=== PATIENT | female | born 2000 | race Caucasian/White ===

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

== ENCOUNTER 2018-12-13 05:54 | Emergency (ER) | payer OTHER ==
[~2018-12-13] VITALS: Ht 165.1 cm; Wt 85.3 kg
[2018-12-13 06:09] VITALS: BP 134/104
[2018-12-13] MEDS ORDERED: MORPHINE SULFATE 4 MG/ML DISP.SYRIN. IV/SQ PRN (06:15)
[2018-12-13] MEDS ORDERED: MORPHINE SULFATE 4 MG/ML DISP.SYRIN. ONE (06:18)
--- NOTE | 2018-12-13 06:20 | PHYS DOC ---
Past History Past Medical History: No Pertinent History, Other Past Surgical History: Other Additional Past Surgical Histo: WISDOM TEETH Smoking: Non-smoker Alcohol Use: Occasionally Drug Use: Marijuana Adult General Chief Complaint Chief Complaint: ABDOMINAL PAIN HPI HPI Patient is a 18-year-old female presents with right-sided abdominal pain that started several hours prior to arrival and is been getting worse over time. Worse with bumps on the car ride to the emergency department. There is nausea, no vomiting, no diarrhea. No appetite. No fever or chills. No previous abdominal surgeries. Patient has had an IUD in place for the past 3 years and has had intermittent spotting, worse over the past year and a half. No specific menstrual period. No vaginal discharge. No dysuria. No back or flank pain. Pain started after sexual intercourse last night. Reports that the pain is severe in intensity.[] Review of Systems Review of Systems Constitutional: Denies fever or chills [] Eyes: Denies change in visual acuity, redness, or eye pain [] HENT: Denies nasal congestion or sore throat [] Respiratory: Denies cough or shortness of breath [] Cardiovascular: No chest pain or palpitations[] GI: See history of present illness[] : Denies dysuria or hematuria [] Musculoskeletal: Denies back pain or joint pain [] Integument: Denies rash or skin lesions [] Neurologic: Denies headache, focal weakness or sensory changes [] Endocrine: Denies polyuria or polydipsia [] All other systems were reviewed and found to be within normal limits, except as documented in this note. Allergies Allergies Allergies Coded Allergies Type Severity Reaction Last Updated Verified ibuprofen Allergy Severe 07/27/17 Yes pineapple Allergy Severe 07/27/17 Yes Physical Exam Physical Exam Constitutional: Well developed, well nourished, mild discomfort, non-toxic appearance. [] HENT: Normocephalic, atraumatic, bilateral external ears normal, oropharynx moist, no oral exudates, nose normal. [] Eyes: PERRLA, EOMI, conjunctiva normal, no discharge. [] Neck: Normal range of motion, no tenderness, supple, no stridor. [] Cardiovascular:Heart rate regular rhythm, no murmur [] Lungs & Thorax: Bilateral breath sounds clear to auscultation [] Abdomen: Bowel sounds normal, soft, tenderness on the right side, positive Rovsing sign, no masses, no pulsatile masses. Pelvic exam performed with cinema or theatre manager: External genitalia, Bantry's, urethra, and Bartholin's glands are all normal. No rashes or lesions. Vaginal vault shows no significant discharge, no bleeding. Cervix has no cervical motion tenderness, no blood. [] Skin: Warm, dry, no erythema, no rash. [] Back: No tenderness, no CVA tenderness. [] Extremities: No tenderness, no cyanosis, no clubbing, ROM intact, no edema. [] Neurologic: Alert and oriented X 3, normal motor function, normal sensory function, no focal deficits noted. [] Psychologic: Affect normal, judgement normal, mood normal. [] Current Patient Data Vital Signs Vital Signs Date Time Temp Pulse Resp B/P (MAP) Pulse Ox O2 Delivery O2 Flow Rate FiO2 12/13/18 06:09 98.5 106 18 99 Room Air EKG EKG [] Radiology/Procedures Radiology/Procedures PROCEDURE: CT ABD PELV W/ IV CONTRST ONLY CT ABD PELV W/ IV CONTRST ONLY History: Right lower quadrant pain. Negative hCG on 12/13/2018. IUD. Comparison: None. Technique: After administration of intravenous contrast, helical CT of the abdomen and pelvis was performed from the lung bases through the ischial tuberosities. Coronal and sagittal reconstructions were obtained. 75 mL of Omnipaque 300 were used. One or more of the following dose reduction techniques were utilized: Automated exposure control (AEC), Adjustment of mA and/or kV according to patient size, Use of iterative reconstruction technique such as ASiR, CT scan done according to ALARA and image gently/image wisely Abdomen Findings: The visualized lung bases are clear. The liver, gallbladder, pancreas, spleen, and bilateral adrenal glands are normal. Symmetric renal enhancement. There is no focal renal mass. There is no hydronephrosis. The visualized loops of small bowel are normal. The visualized loops of large bowel are normal. There is no evidence of bowel obstruction. Appendix is normal. There is no mesenteric or retroperitoneal adenopathy. The abdominal aorta is normal in caliber. Pelvis Findings: Urinary bladder is normal. There is no pelvic or inguinal adenopathy. Incompletely characterized right adnexal cystic lesion measuring 4.0 cm with mild surrounding fluid. IUD in place. There is no acute bony abnormality. IMPRESSION: Incompletely characterized right adnexal cystic lesion measuring 4.0 cm with mild surrounding fluid. Consider pelvic ultrasound for further evaluation. PROCEDURE: US PELVIS Pelvic ultrasound History: Severe right lower quadrant pain, cyst on CT Comparison: December 13, 2018 CT abdomen pelvis exam Findings: Multiple transabdominal sonographic images of the pelvis are submitted. Uterus measured 9 x 3.5 x 4.8 cm. There is IUD present in the endometrial cavity. Right ovary measured 5.1 x 3 x 4.1 cm. Left ovary measured 3.5 x 3 x 2.1 cm. There is minimal free fluid in the pelvis. There is a hypoechoic lesion of the right ovary about 2.2 x 2.3 x 1.3 cm, internal echoes present. There is normal low resistance vascularity of the ovaries bilaterally. Impression: 1. There is somewhat complex right ovarian cyst about 2.3 cm. There is minimal nonspecific free fluid in the pelvis. 2. There is IUD present in the endometrial cavity.[] Course & Med Decision Making Course & Med Decision Making Pertinent Labs and Imaging studies reviewed. (See chart for details) ED course: Patient arrived, was placed in bed, and tolerated exam well. She was given a dose of pain medicine and had subsequent nausea without vomiting. She was given antiemetics for this. Both the pain and nausea were controlled with single doses of medicine. She was transported to and from CT with any complications. After the return of the CT findings, ultrasound was ordered and she was transported to and from ultrasound without any complications. After the return of laboratory and imaging findings, these were discussed with the patient who voiced understanding. All questions were answered. She was discharged in improved condition. Medical decision making: There is no evidence of appendicitis, cholecystitis, pancreatitis, ectopic , nor tubo-ovarian abscess. No evidence of ovarian torsion. This appears to be an ovarian cyst that "popped" causing pain from the irritation of blood. Incidental finding is noted of bacterial vaginosis.[] Dragon Disclaimer Dragon Disclaimer This electronic medical record was generated, in whole or in part, using a voice recognition dictation system. Departure Departure: Impression: Primary Impression: Ovarian cyst Additional Impression: Bacterial vaginosis Disposition: HOME, SELF-CARE Condition: IMPROVED Referrals: PCP,MARGI (PCP) Patient Instructions: Bacterial Vaginosis, Ovarian Cyst Additional Instructions: Follow-up with your regular doctor in 2 days. If you do not have regular doctor list of local clinics will be provided for you. Return to the ER if worsening discomfort or any other concerns. Scripts Metronidazole (METRONIDAZOLE) 500 Mg Tablet 1 TAB PO BID for BV, #14 TAB Prov: PATSY VELOZ DO 12/13/18 Hydrocodone Bit/Acetaminophen (NORCO 5-325 TABLET) 1 Each Tablet 1 TAB PO Q4-6HRS for severe pain, #20 TAB Prov: PATSY VELOZ DO 12/13/18 Problem Qualifiers Primary Impression: Ovarian cyst Laterality: right Qualified Codes: N83.201 - Unspecified ovarian cyst, right side PATSY VELOZ DO Dec 13, 2018 06:20
[2018-12-13 06:30] LABS: BASO # 0.1 x10^3/uL (0.0-0.2); BASO % 1 % (0-3); EOS # 0.3 x10^3/uL (0.0-0.7); EOS % 3 % (0-3); HEMATOCRIT 41.9 % (36.0-47.0); HEMOGLOBIN 14.1 g/dL (12.0-15.5); LYMPH % 20 % (24-48); MEAN CORPUSCULAR HEMOGLOBIN 32 pg (25-35); MEAN CORPUSCULAR HGB CONC 34 g/dL (31-37); MEAN CORPUSCULAR VOLUME 94 fL (79-100); MONO # 0.8 x10^3/uL (0.0-1.1); MONO % 8 % (0-9); NEUT # 6.9 x10^3uL (1.8-7.7); NEUT % 68 % (31-73); PLATELET COUNT 223 x10^3/uL (140-400); RED BLOOD COUNT 4.45 x10^6/uL (3.50-5.40); RED CELL DISTRIBUTION WIDTH 12.7 % (11.5-14.5); WHITE BLOOD COUNT 10.1 x10^3/uL (4.0-11.0)
[2018-12-13] MEDS ORDERED: IOHEXOL 300 MG/ML 75 ML VIAL. IV ONE (06:30)
[2018-12-13] MEDS ORDERED: CONTRAST GIVEN MC PRN (06:30)
[2018-12-13] MEDS ORDERED: IV NORMAL SALINE 1,000ML 1,000 ML IV SCH (06:30)
[2018-12-13 06:41] LABS: ALBUMIN 3.9 g/dL (3.4-5.0); ALBUMIN/GLOBULIN RATIO 1.1 (1.0-1.7); CALCIUM 8.8 mg/dL (8.5-10.1); CREATININE 0.9 mg/dL (0.6-1.0); GFR 79.8; POTASSIUM 4.6 mmol/L (3.5-5.1); TOTAL BILIRUBIN 0.3 mg/dL (0.2-1.0); TOTAL PROTEIN 7.4 g/dL (6.4-8.2)
[2018-12-13] MEDS ORDERED: METOCLOPRAMIDE HCL 10 MG/2 ML VIAL. IV ONE (07:00)
--- NOTE | 2018-12-13 07:05 | RAD ---
CT ABD PELV W/ IV CONTRST ONLY History: Right lower quadrant pain. Negative hCG on 12/13/2018. IUD. Comparison: None. Technique: After administration of intravenous contrast, helical CT of the abdomen and pelvis was performed from the lung bases through the ischial tuberosities. Coronal and sagittal reconstructions were obtained. 75 mL of Omnipaque 300 were used. One or more of the following dose reduction techniques were utilized: Automated exposure control (AEC), Adjustment of mA and/or kV according to patient size, Use of iterative reconstruction technique such as ASiR, CT scan done according to ALARA and image gently/image wisely Abdomen Findings: The visualized lung bases are clear. The liver, gallbladder, pancreas, spleen, and bilateral adrenal glands are normal. Symmetric renal enhancement. There is no focal renal mass. There is no hydronephrosis. The visualized loops of small bowel are normal. The visualized loops of large bowel are normal. There is no evidence of bowel obstruction. Appendix is normal. There is no mesenteric or retroperitoneal adenopathy. The abdominal aorta is normal in caliber. Pelvis Findings: Urinary bladder is normal. There is no pelvic or inguinal adenopathy. Incompletely characterized right adnexal cystic lesion measuring 4.0 cm with mild surrounding fluid. IUD in place. There is no acute bony abnormality. IMPRESSION: Incompletely characterized right adnexal cystic lesion measuring 4.0 cm with mild surrounding fluid. Consider pelvic ultrasound for further evaluation. Electronically signed by: Serg Lemus MD (12/13/2018 7:02 AM) [id number]
--- NOTE | 2018-12-13 08:31 | RAD ---
Pelvic ultrasound History: Severe right lower quadrant pain, cyst on CT Comparison: December 13, 2018 CT abdomen pelvis exam Findings: Multiple transabdominal sonographic images of the pelvis are submitted. Uterus measured 9 x 3.5 x 4.8 cm. There is IUD present in the endometrial cavity. Right ovary measured 5.1 x 3 x 4.1 cm. Left ovary measured 3.5 x 3 x 2.1 cm. There is minimal free fluid in the pelvis. There is a hypoechoic lesion of the right ovary about 2.2 x 2.3 x 1.3 cm, internal echoes present. There is normal low resistance vascularity of the ovaries bilaterally. Impression: 1. There is somewhat complex right ovarian cyst about 2.3 cm. There is minimal nonspecific free fluid in the pelvis. 2. There is IUD present in the endometrial cavity. Electronically signed by: Serg Dang MD (12/13/2018 8:28 AM) [facility]
[2018-12-13 09:08] LABS: AMORPHOUS SEDIMENT,UR PRESENT /HPF; BACTERIA,URINE FEW /HPF (0-FEW); BILIRUBIN,URINE NEG (NEG); CLARITY,URINE HAZY; COLOR,URINE YELLOW; GLUCOSE,URINE NEG (NEG); NITRITE,URINE NEG (NEG); UROBILINOGEN,URINE 0.2 mg/dL (0.2 mg/dL); WBC,URINE OCC /HPF (0-4)
[2018-12-13 09:09] LABS: SQUAMOUS EPITHELIAL CELL,UR FEW /LPF
[2018-12-13] MEDS ORDERED: HYDR-3165 PO (09:28)
[2018-12-13] MEDS ORDERED: METR-34 PO (09:28)
== END 2018-12-13 09:35 | disposition home or self-care (01) ==
LOC: ER 05:54
DX: N83.201 Unspecified ovarian cyst, right side (principal); N76.0 Acute vaginitis; B96.89 Other specified bacterial agents as the cause of diseases classified elsewhere; Z91.018 Allergy to other foods
CPT/HCPCS: 36415; 74177; 76856; 80053; 81001; 81025; 83690; 85025; 87491; 87591; 96374; 96375; 99285; J2270; J2765; Q0111; Q9967; J7030

== ENCOUNTER 2018-12-18 18:18 | Emergency (ER) | payer OTHER ==
[~2018-12-18] VITALS: Ht 165.1 cm; Wt 81.6 kg
[~2018-12-18 18:18] MED LIST: HYDR-3165 PO; METR-34 PO
[2018-12-18] MEDS ORDERED: IV NORMAL SALINE 1,000ML 1,000 ML IV ONE (18:45)
--- NOTE | 2018-12-18 18:59 | PHYS DOC ---
Past History Past Medical History: No Pertinent History, Other Past Surgical History: Other Additional Past Surgical Histo: WISDOM TEETH Smoking: Non-smoker Alcohol Use: Occasionally Drug Use: Marijuana Adult General Chief Complaint Chief Complaint: VAGINAL PROBLEM HPI HPI 18-year-old female returns to the emergency room with vaginal bleeding and abdominal pain. This time her abdominal pain is on the left side instead of the right. She was seen in this a few days ago and diagnosed with an ovarian cyst. The patient has been taking pain medication that she was prescribed at her last visit. She has not taken any today. The pain is on the left-sided she describes it as an intense cramping sensation moderate to severe in intensity. She is also had some vaginal bleeding. When she wipes herself bright red blood. Patient still has an IUD that she's had for about 3 years. She does not have a regular menses, but has had some breakthrough bleeding the last year. She denies fever but feels like she might have chills. She denies dysuria. Review of Systems Review of Systems Constitutional: Denies fever or chills [] Eyes: Denies change in visual acuity, redness, or eye pain [] HENT: Denies nasal congestion or sore throat [] Respiratory: Denies cough or shortness of breath [] Cardiovascular: No additional information not addressed in HPI [] GI: Lower quadrant abdominal pain. Denies nausea, vomiting, bloody stools or diarrhea [] : Denies dysuria or hematuria [] Musculoskeletal: Denies back pain or joint pain [] Integument: Denies rash or skin lesions [] Neurologic: Denies headache, focal weakness or sensory changes [] Endocrine: Denies polyuria or polydipsia [] All other systems were reviewed and found to be within normal limits, except as documented in this note. Current Medications Current Medications Current Medications Medications (Trade) Dose Ordered Sig/Nino Start Time Stop Time Status Last Admin Dose Admin Sodium Chloride 1,000 ml @ 1,000 mls/hr 1X ONCE 12/18/18 18:45 12/18/18 19:44 Allergies Allergies Allergies Coded Allergies Type Severity Reaction Last Updated Verified ibuprofen Allergy Severe 07/27/17 Yes pineapple Allergy Severe 07/27/17 Yes Physical Exam Physical Exam Constitutional: Well developed, obese, well nourished, no acute distress, non- toxic appearance. [] HENT: Normocephalic, atraumatic, bilateral external ears normal, oropharynx moist, no oral exudates, nose normal. [] Eyes: PERRLA, EOMI, conjunctiva normal, no discharge. [] Neck: Normal range of motion, no tenderness, supple, no stridor. [] Cardiovascular:Heart rate regular rhythm, no murmur [] Lungs & Thorax: Bilateral breath sounds clear to auscultation [] Abdomen: Bowel sounds normal, soft, LLQ tenderness, no masses, no pulsatile masses. [] Skin: Warm, dry, no erythema, no rash. [] Back: No tenderness, no CVA tenderness. [] Extremities: No tenderness, no cyanosis, no clubbing, ROM intact, no edema. [] Neurologic: Alert and oriented X 3, normal motor function, normal sensory function, no focal deficits noted. [] Psychologic: Affect normal, judgement normal, mood normal. [] Current Patient Data Vital Signs Vital Signs Date Time Temp Pulse Resp B/P (MAP) Pulse Ox O2 Delivery O2 Flow Rate FiO2 12/18/18 18:37 98.2 97 16 97 Room Air EKG EKG [] Radiology/Procedures Radiology/Procedures [] Impressions: Examination: CT ABD PELV W/ IV CONTRST ONLY History: Left lower quadrant pain Comparison/Correlation: 12/13/2018 CT abdomen and pelvis with contrast Findings: Axial images of the abdomen and pelvis were obtained following IV contrast. Sagittal and coronal reformatted images were provided. Linear atelectasis or scarring involves the anterior right base. Mosaic attenuation is present involving the lung bases. Liver, spleen, pancreas, adrenal glands, and kidneys are unremarkable. Appendix is normal. Moderate quantity of stool in the colon noted. No obstruction or extraluminal gas. Intrauterine device is present. Left adnexal cyst measuring up to 2.5 cm diameter with minimal fluid adjacent to it in the dependent aspect noted. Trace pelvic free fluid. Right adnexal 4.4 cm diameter septated cyst or possibly 2 adjacent smaller cysts is present. No extraluminal gas or bowel obstruction. No ascites or pelvic free fluid. Bony structures are unremarkable. Impression: Bilateral adnexal cysts. Trace pelvic free fluid. These may be physiologic. Decreased pelvic free fluid since the prior CT exam. Correlate clinically in determining follow-up to assess for resolution. PQRS Compliance Statement: One or more of the following individualized dose reduction techniques were utilized for this examination: 1. Automated exposure control 2. Adjustment of the mA and/or kV according to patient size 3. Use of iterative reconstruction technique Electronically signed by: Yuri Ivy MD (12/18/2018 9:42 PM) [facility] DICTATED AND SIGNED BY: YURI IVY MD DATE: 12/18/18 [id number] CC: SAGAR SAGASTUME DO; PCP,NO ~ Examination: US PELVIS W/TV History: Pelvic pain Comparison/Correlation: 12/18/2018 CT abdomen and pelvis with contrast, 12/13/2018 pelvic ultrasound exam Findings: Transabdominal and transvaginal pelvic ultrasound exam was performed. Transvaginal technique was utilized to better assess the adnexal structures. Uterus measures 9.6 cm x 5.3 cm x 4 cm. Myometrium is unremarkable. Endometrial thickness is 0.5 centimeter. No intrauterine gestation. Nabothian cysts involving the uterine cervix. Right ovary measures 5.2 cm x 4.3 cm x 3.4 cm. Left ovary measures 3.1 cm x 2.1 cm x 1.6 centimeters. Right ovary complex cyst measuring 4.5 cm x 3.6 cm x 2.7 cm present. There is no flow within it on color Doppler imaging. Flow bilaterally involving the ovaries is identified. Left ovary measures 2.1 cm x 3.1 cm x 1.6 cm. Small follicles are present. Small amount of pelvic free fluid is present. Impression: Right adnexal complex cystic structure is larger in size on the current exam as compared previous ultrasound exam. Correlate with serial beta hCG and follow-up ultrasound if ectopic gestation is a concern. Endometrium account for this finding. Correlate for possibility of underlying endometriosis. Minimal pelvic free fluid. No new suspicious pelvic region. Normal ovarian flow with no evidence of torsion. Electronically signed by: Yuri Ivy MD (12/18/2018 11:14 PM) [facility] DICTATED AND SIGNED BY: YRUI IVY MD DATE: 12/18/18 [id number] CC: SAGAR SAGASTUME DO; PCP,NO ~ Course & Med Decision Making Course & Med Decision Making Pertinent Labs and Imaging studies reviewed. (See chart for details) The patient's labs are unremarkable. Her CT scan and ultrasound continued to show a complex cyst of the left, but there is now an additional 2.5 cm cyst on the right. The patient is very uncomfortable. She has required multiple doses of pain medication. I checked the narcotics tracking database and she has one prescription in the last 2 years that was given by my colleague at her visit 6 days ago. The patient does have a UTI. She was given 1 g of Rocephin. I discussed the patient with Dr. Norman and he has accepted patient for transfer and admission to [facility]. OB is available at this facility. The patient will go by POV. [] Dragon Disclaimer Dragon Disclaimer This electronic medical record was generated, in whole or in part, using a voice recognition dictation system. Departure Departure: Impression: Primary Impression: Complex cyst of left ovary Additional Impression: Ovarian cyst Disposition: [facility] Admitting Physician: Jaqueline Norman Condition: STABLE Referrals: PCP,NO (PCP) Problem Qualifiers Additional Impression: Ovarian cyst Laterality: bilateral Qualified Codes: N83.201 - Unspecified ovarian cyst, right side; N83.202 - Unspecified ovarian cyst, left side SAGAR SAGASTUME DO Dec 18, 2018 18:59
[2018-12-18] MEDS ORDERED: ONDANSETRON PF 4 MG/2 ML VIAL. IV ONE (19:00)
[2018-12-18] MEDS ORDERED: MORPHINE SULFATE 4 MG/ML DISP.SYRIN. IV ONE (19:00)
[2018-12-18 19:09] LABS: BASO % 1 % (0-3); EOS # 0.1 x10^3/uL (0.0-0.7); EOS % 1 % (0-3); HEMATOCRIT 41.8 % (36.0-47.0); HEMOGLOBIN 14.2 g/dL (12.0-15.5); LYMPH # 2.2 x10^3/uL (1.0-4.8); LYMPH % 36 % (24-48); MEAN CORPUSCULAR HEMOGLOBIN 32 pg (25-35); MEAN CORPUSCULAR HGB CONC 34 g/dL (31-37); MEAN CORPUSCULAR VOLUME 93 fL (79-100); MONO # 0.5 x10^3/uL (0.0-1.1); MONO % 8 % (0-9); NEUT # 3.3 x10^3uL (1.8-7.7); NEUT % 54 % (31-73); PLATELET COUNT 229 x10^3/uL (140-400); RED BLOOD COUNT 4.49 x10^6/uL (3.50-5.40); RED CELL DISTRIBUTION WIDTH 12.8 % (11.5-14.5); WHITE BLOOD COUNT 6.1 x10^3/uL (4.0-11.0)
[2018-12-18 19:27] LABS: ALBUMIN 4.1 g/dL (3.4-5.0); ALBUMIN/GLOBULIN RATIO 1.1 (1.0-1.7); CALCIUM 8.9 mg/dL (8.5-10.1); CREATININE 0.8 mg/dL (0.6-1.0); GFR 91.4; TOTAL BILIRUBIN 0.4 mg/dL (0.2-1.0); TOTAL PROTEIN 7.7 g/dL (6.4-8.2)
[2018-12-18 19:58] LABS: BILIRUBIN,URINE NEG (NEG); CLARITY,URINE HAZY; COLOR,URINE YELLOW; GLUCOSE,URINE NEG (NEG)
[2018-12-18 19:59] LABS: BACTERIA,URINE MOD /HPF (0-FEW); NITRITE,URINE NEG (NEG); SQUAMOUS EPITHELIAL CELL,UR OCC /LPF; UROBILINOGEN,URINE 0.2 mg/dL (0.2 mg/dL)
[2018-12-18 20:00] LABS: HYALINE CASTS, URINE OCC /HPF
[2018-12-18] MEDS ORDERED: HYDROmorphone PF 1 MG/ML DISP.SYRIN IV ONE ×3 (20:00→23:45)
[2018-12-18] MEDS ORDERED: cefTRIAXone SODIUM 1 GM VIAL ONE ×2 (20:25→22:49)
[2018-12-18] MEDS ORDERED: IV NORMAL SALINE 50ML 50 ML ONE ×2 (20:25→22:49)
[2018-12-18] MEDS ORDERED: IOHEXOL 300 MG/ML 75 ML VIAL. IV ONE (20:30)
--- NOTE | 2018-12-18 21:45 | RAD ---
Examination: CT ABD PELV W/ IV CONTRST ONLY History: Left lower quadrant pain Comparison/Correlation: 12/13/2018 CT abdomen and pelvis with contrast Findings: Axial images of the abdomen and pelvis were obtained following IV contrast. Sagittal and coronal reformatted images were provided. Linear atelectasis or scarring involves the anterior right base. Mosaic attenuation is present involving the lung bases. Liver, spleen, pancreas, adrenal glands, and kidneys are unremarkable. Appendix is normal. Moderate quantity of stool in the colon noted. No obstruction or extraluminal gas. Intrauterine device is present. Left adnexal cyst measuring up to 2.5 cm diameter with minimal fluid adjacent to it in the dependent aspect noted. Trace pelvic free fluid. Right adnexal 4.4 cm diameter septated cyst or possibly 2 adjacent smaller cysts is present. No extraluminal gas or bowel obstruction. No ascites or pelvic free fluid. Bony structures are unremarkable. Impression: Bilateral adnexal cysts. Trace pelvic free fluid. These may be physiologic. Decreased pelvic free fluid since the prior CT exam. Correlate clinically in determining follow-up to assess for resolution. PQRS Compliance Statement: One or more of the following individualized dose reduction techniques were utilized for this examination: 1. Automated exposure control 2. Adjustment of the mA and/or kV according to patient size 3. Use of iterative reconstruction technique Electronically signed by: Yuri Jeong MD (12/18/2018 9:42 PM) [facility]
--- NOTE | 2018-12-18 23:17 | RAD ---
Examination: US PELVIS W/TV History: Pelvic pain Comparison/Correlation: 12/18/2018 CT abdomen and pelvis with contrast, 12/13/2018 pelvic ultrasound exam Findings: Transabdominal and transvaginal pelvic ultrasound exam was performed. Transvaginal technique was utilized to better assess the adnexal structures. Uterus measures 9.6 cm x 5.3 cm x 4 cm. Myometrium is unremarkable. Endometrial thickness is 0.5 centimeter. No intrauterine gestation. Nabothian cysts involving the uterine cervix. Right ovary measures 5.2 cm x 4.3 cm x 3.4 cm. Left ovary measures 3.1 cm x 2.1 cm x 1.6 centimeters. Right ovary complex cyst measuring 4.5 cm x 3.6 cm x 2.7 cm present. There is no flow within it on color Doppler imaging. Flow bilaterally involving the ovaries is identified. Left ovary measures 2.1 cm x 3.1 cm x 1.6 cm. Small follicles are present. Small amount of pelvic free fluid is present. Impression: Right adnexal complex cystic structure is larger in size on the current exam as compared previous ultrasound exam. Correlate with serial beta hCG and follow-up ultrasound if ectopic gestation is a concern. Endometrium account for this finding. Correlate for possibility of underlying endometriosis. Minimal pelvic free fluid. No new suspicious pelvic region. Normal ovarian flow with no evidence of torsion. Electronically signed by: Yuri Jeong MD (12/18/2018 11:14 PM) [facility]
[2018-12-19] MEDS ORDERED: ONDANSETRON PF 4 MG/2 ML VIAL. IV ONE (00:15)
[2018-12-19 00:25] VITALS: BP 141/68
[2018-12-19] MEDS ORDERED: PROCHLORPERAZINE 10 MG/2 ML VIAL. IM ONE (00:45)
== END 2018-12-19 00:30 | disposition short-term general hospital (02) ==
LOC: ER 18:18
DX: N83.292 Other ovarian cyst, left side (principal); N83.201 Unspecified ovarian cyst, right side; Z88.6 Allergy status to analgesic agent; Z91.018 Allergy to other foods
CPT/HCPCS: 36415; 74177; 76830; 76856; 80053; 81001; 81025; 84702; 85025; 87086; 96365; 96375; 96376; 99285; J0696; J1170; J2270; J2405; Q9967; J7030

== ENCOUNTER 2019-01-30 20:48 | Emergency (ER) | payer SELFPAY ==
[~2019-01-30] VITALS: Ht 165.1 cm; Wt 78.1 kg
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
[2019-01-30] MEDS ORDERED: ONDANSETRON PF 4 MG/2 ML VIAL. ONE (21:06)
[2019-01-30] MEDS ORDERED: IV RINGERS SOLUTION,LACTATED 1,000 ML IV SCH (21:08)
[2019-01-30 21:19] LABS: BARBITURATES NEG (NEG); BENZODIAZEPINES NEG (NEG); CANNABINOIDS POS (NEG); COCAINE NEG (NEG); METHADONE NEG (NEG); OPIATES NEG (NEG); PHENCYCLIDINE NEG (NEG)
[2019-01-30 21:22] LABS: AMPHETAMINE/METHAMPHETAMINE NEG (NEG)
[2019-01-30 21:23] LABS: BILIRUBIN,URINE NEG (NEG); CLARITY,URINE CLEAR; COLOR,URINE YELLOW; GLUCOSE,URINE NEG (NEG)
[2019-01-30 21:24] LABS: BACTERIA,URINE 0 /HPF (0-FEW); NITRITE,URINE NEG (NEG); RBC,URINE RARE /HPF (0-2); SQUAMOUS EPITHELIAL CELL,UR FEW /LPF; UROBILINOGEN,URINE 0.2 mg/dL (0.2 mg/dL); WBC,URINE RARE /HPF (0-4)
[2019-01-30] MEDS ORDERED: MORPHINE SULFATE 10 MG/ML SYRINGE. SQ ONE (21:30)
[2019-01-30] MEDS ORDERED: FAMOTIDINE 20 MG/2 ML VIAL IVP ONE (21:30)
[2019-01-30] MEDS ORDERED: ONDANSETRON PF 4 MG/2 ML VIAL. IVP ONE (21:30)
[2019-01-30 21:33] LABS: BASO # 0.1 x10^3/uL (0.0-0.2); BASO % 1 % (0-3); EOS # 0.3 x10^3/uL (0.0-0.7); EOS % 3 % (0-3); HEMOGLOBIN 13.8 g/dL (12.0-15.5); LYMPH # 3.2 x10^3/uL (1.0-4.8); LYMPH % 30 % (24-48); MEAN CORPUSCULAR HEMOGLOBIN 31 pg (25-35); MEAN CORPUSCULAR HGB CONC 34 g/dL (31-37); MEAN CORPUSCULAR VOLUME 92 fL (79-100); MONO # 0.7 x10^3/uL (0.0-1.1); MONO % 6 % (0-9); NEUT # 6.6 x10^3uL (1.8-7.7); NEUT % 61 % (31-73); PLATELET COUNT 286 x10^3/uL (140-400); RED BLOOD COUNT 4.45 x10^6/uL (3.50-5.40); RED CELL DISTRIBUTION WIDTH 12.7 % (11.5-14.5); WHITE BLOOD COUNT 10.8 x10^3/uL (4.0-11.0)
[2019-01-30] MEDS ORDERED: birth control (21:37)
[2019-01-30 21:54] LABS: ALBUMIN 3.3 g/dL (3.4-5.0); CALCIUM 8.8 mg/dL (8.5-10.1); CREATININE 0.9 mg/dL (0.6-1.0); DIRECT BILIRUBIN 0.1 mg/dL (0.0-0.2); GFR 79.8; TOTAL BILIRUBIN 0.2 mg/dL (0.2-1.0); TOTAL PROTEIN 6.8 g/dL (6.4-8.2)
[2019-01-30] MEDS ORDERED: KETOROLAC 30 MG/ML VIAL. IVP ONE (22:00)
[2019-01-30] MEDS ORDERED: HYDROmorphone PF 2 MG/ML VIAL IM ONE (22:45)
[2019-01-30] MEDS ORDERED: IV RINGERS SOLUTION,LACTATED 1,000 ML IV ONE (23:00)
--- NOTE | 2019-01-30 23:46 | RAD ---
Acute Abdominal Series: Technique: PA view of the chest and supine and upright views of the abdomen were obtained. History: Pain. Comparison: None. Findings: The lungs and pleural margins are clear. There is air and stool scattered throughout the colon. There is a paucity small bowel gas. There is no free air. There is complete obscuration of the renal shadows by overlying bowel gas. Impression: Nonobstructive bowel gas pattern suggesting mild constipation. Electronically signed by: Aram Shook III, MD (01/30/2019 11:43 PM) [facility]
[2019-01-30] MEDS ORDERED: HYDROmorphone PF 1 MG/ML DISP.SYRIN ONE (23:58)
[2019-01-31] MEDS ORDERED: HYDROmorphone PF 2 MG/ML VIAL IV ONE (00:15)
[2019-01-31] MEDS ORDERED: diphenhydrAMINE 50 MG/ML VIAL IVP ONE (00:15)
[2019-01-31] MEDS ORDERED: PROCHLORPERAZINE 10 MG/2 ML VIAL. IV ONE (00:15)
[2019-01-31] MEDS ORDERED: ONDANSETRON PF 4 MG/2 ML VIAL. IVP ONE (00:15)
--- NOTE | 2019-01-31 00:51 | RAD ---
Ultrasound pelvis complete and transvaginal ultrasound pelvis HISTORY: One day of pain right worse than left Sonographic examination of the pelvis was performed by transabdominal and endovaginal technique. Multiple static images were obtained. Ultrasound pelvis complete: The uterus appears normal. The right ovary appears normal with normal blood flow measures 3.2 x 3.9 x 2.0 cm. Left ovary is not seen. Transvaginal some pelvis: The endometrium of the uterus appears normal and measures 4 mm in thickness. The left ovary measures 4.4 x 3.6 x 2 point centimeter cm. There is a complex lesion in the left ovary that measures 2.6 x 1.5 x 1.8 cm. There is a small amount of free fluid. There is nabothian cysts in the cervix. IMPRESSION: Collapsing hemorrhagic cyst in the left ovary. This interpretation assumes the patient is not . Electronically signed by: Aram Shook III, MD (01/31/2019 12:48 AM) [facility]
[2019-01-31] MEDS ORDERED: OXYC1TAB15 PO (01:27)
[2019-01-31] MEDS ORDERED: ONDA8TAB9 PO (01:27)
[2019-01-31 02:30] VITALS: BP 118/53
== END 2019-01-31 02:40 | disposition home or self-care (01) ==
LOC: ER 20:48
DX: R10.31 Right lower quadrant pain (principal); R11.2 Nausea with vomiting, unspecified; F12.10 Cannabis abuse, uncomplicated; Z91.018 Allergy to other foods; Z88.6 Allergy status to analgesic agent
CPT/HCPCS: 36415; 74022; 76830; 76856; 80048; 80076; 80307; 81001; 81025; 82150; 83690; 85025; 96361; 96372; 96374; 96375; 96376; 99285; J0780; J1170; J1200; J1885; J2270; J2405; J3490; J7120

== ENCOUNTER 2021-02-14 07:08 | Emergency (ER) | payer OTHER ==
[~2021-02-14] VITALS: Ht 165.1 cm; Wt 73.0 kg
[~2021-02-14 07:08] MED LIST changes: +ONDA8TAB9 PO; +OXYC1TAB15 PO; +birth control
--- NOTE | 2021-02-14 07:23 | PHYS DOC ---
Past History Past Medical History: No Pertinent History, Ovarian Cyst, Other Past Surgical History: Other Additional Past Surgical Histo: WISDOM TEETH Smoking: Non-smoker Alcohol Use: Occasionally Drug Use: Marijuana Adult General Chief Complaint Chief Complaint: VAGINAL BLEEDING [facility] HPI Patient is a 20-year-old female presenting for vaginal bleeding. Reports she is 8 months from a . States at that time an IUD was placed. Reports she had no issues up until 4 months ago when she reports on and off vaginal bleeding. Patient attempted to see her SKIN CARE TECHNICIAN a few weeks ago but owed money and subsequently was turned down from being able to visit them. States today without any known inciting event, trauma, ingestion, known mechanism of injury or other exacerbating factor, she started experiencing heavier vaginal bleeding than usual and went x3 tampons in 1 hour prompting her to come in for evaluation. Bleeding has been constant and painless. Denies any change in skin color, lightheadedness, dizziness, chest pain, shortness of breath or other concerning findings Review of Systems Review of Systems Fourteen body systems of review of systems have been reviewed. See HPI for pertinent positives and negative responses, other dumont all other systems are negative, non-pertinent or non-contributory Allergies Allergies Allergies Coded Allergies Type Severity Reaction Last Updated Verified pineapple Allergy Severe 01/30/19 Yes ibuprofen Adverse Reaction Intermediate Rash 01/30/19 Yes Physical Exam Physical Exam Constitutional: Well developed, well nourished, no acute distress, non-toxic appearance. HENT: Normocephalic, atraumatic, bilateral external ears normal, oropharynx moist, no oral exudates, nose normal. Eyes: PERRLA, EOMI, conjunctiva normal, no discharge. Neck: Normal range of motion, no tenderness, supple, no stridor. Cardiovascular: Heart rate regular, sinus rhythm, no murmurs rubs or gallops Lungs & Thorax: Bilateral breath sounds clear to auscultation Abdomen: Bowel sounds normal, soft, no tenderness, no masses, no pulsatile masses. Nonsurgical abdomen, no peritoneal signs Skin: Warm, dry, no erythema, no rash. Back: No tenderness, no CVA tenderness. Extremities: No tenderness, no cyanosis, no clubbing, ROM intact, no edema. Neurologic: Alert and oriented X 3, grossly normal motor & sensory function, no focal deficits noted. Psychologic: Anxious affect and mood Current Patient Data Vital Signs Vital Signs Date Time Temp Pulse Resp B/P (MAP) Pulse Ox O2 Delivery O2 Flow Rate FiO2 02/14/21 07:26 98.0 90 18 160/67 (98) 98 Room Air Vital Signs Date Time Temp Pulse Resp B/P (MAP) Pulse Ox O2 Delivery O2 Flow Rate FiO2 02/14/21 07:26 98.0 90 18 160/67 (98) 98 Room Air Lab Results Laboratory Tests Test 02/14/21 07:35 02/14/21 08:29 White Blood Count 10.4 x10^3/uL Red Blood Count 4.04 x10^6/uL Hemoglobin 13.0 g/dL Hematocrit 38.9 % Mean Corpuscular Volume 96 fL Mean Corpuscular Hemoglobin 32 pg Mean Corpuscular Hemoglobin Concent 33 g/dL Red Cell Distribution Width 13.2 % Platelet Count 202 x10^3/uL Neutrophils (%) (Auto) 69 % Lymphocytes (%) (Auto) 22 % Monocytes (%) (Auto) 7 % Eosinophils (%) (Auto) 3 % Basophils (%) (Auto) 1 % Neutrophils # (Auto) 7.1 x10^3uL Lymphocytes # (Auto) 2.2 x10^3/uL Monocytes # (Auto) 0.7 x10^3/uL Eosinophils # (Auto) 0.3 x10^3/uL Basophils # (Auto) 0.1 x10^3/uL Sodium Level 138 mmol/L Potassium Level 4.5 mmol/L Chloride Level 106 mmol/L Carbon Dioxide Level 24 mmol/L Anion Gap 8 Blood Urea Nitrogen 10 mg/dL Creatinine 0.7 mg/dL Estimated GFR (Cockcroft-Gault) 104.6 Glucose Level 93 mg/dL Calcium Level 8.5 mg/dL Bedside Urine HCG, Qualitative hcg negative Current Medications Medications (Trade) Dose Ordered Sig/Nino Route PRN Reason Start Time Stop Time Status Last Admin Dose Admin Ondansetron HCl (Zofran) 4 mg 1X ONCE IVP 02/14/21 08:45 02/14/21 08:46 EKG EKG [] Radiology/Procedures Radiology/Procedures US PELVIS W/TV History: Vaginal bleeding, IUD 3 months. Comparison: Pelvic ultrasound 01/30/2019 Technique: Sonographic examination of the pelvis was performed with transabdominal and transvaginal technique. Findings: Uterus- Uterine parenchyma: Homogeneous without fibroids. Uterine measurements: 9.6 x 5.9 x 4.9 cm Cervix: IUD string seen within the cervical canal. Endometrium- Endometrial Stripe: An intrauterine device is present in the mid endometrium, approximately 1.5 cm from the fundus. The intrauterine device wings are not well visualized. Thickness: 14 mm. Adnexa- Right Ovary: Identified and appears normal. Size: 5.3 x 3.2 x 3.6 cm Doppler: Normal. Left Ovary: Identified and appears normal. Size: 3.9 x 2.1 x centimeters Doppler: Normal. Other: No abnormal adnexal masses. No abnormal free fluid in the pelvis. Impression: 1. Intrauterine device suboptimally positioned in the mid endometrium, approximately 1.5 cm from the fundus, recommend removal. IUD wings not clearly identified, cannot extension into myometrium. Electronically signed by: Boni Martin MD (02/14/2021 8:33 AM) [id number] Heart Score C/O Chest Pain: No Risk Factors: Risk Factors: DM, Current or recent (<one month) smoker, HTN, HLP, family history of CAD, obesity. Risk Scores: Risk Factors: DM, Current or recent (<one month) smoker, HTN, HLP, family history of CAD, obesity. Course & Med Decision Making Course & Med Decision Making ABCs unremarkable Vitals, physical exam and comprehensive ER work-up nonconcerning for any emergent or surgical issues. I disclosed entirety of all ER findings with patient with specific mention to suboptimal replaced IUD with recommendations for removal. Patient has outpatient SKIN CARE TECHNICIAN whom she is established with, I advised her to pay the $45 co- pay to seek the advice of this professional to determine if need for reposi tioning and/or complete removal is recommended. Joint decision made to discharge home with close SKIN CARE TECHNICIAN follow-up by the end of the week. Strict return precautions discussed and understood by patient who remained hemodynamically stable, asymptomatic and ambulatory throughout entirety of ER Dragon Disclaimer Dragon Disclaimer This electronic medical record was generated, in whole or in part, using a voice recognition dictation system. Departure Departure: Impression: Primary Impression: IUD complication Disposition: HOME / SELF CARE / HOMELESS Condition: STABLE Referrals: PCP,NO (PCP) Additional Instructions: As discussed prior to ER departure, your vitals, physical examination and compre hensive ER work-up were nonconcerning for any emergent or surgical issues. With that said, I did disclose finding based on ultrasound of suboptimally placed IUD with recommendations for removal. Please contact your primary care physician and/or SKIN CARE TECHNICIAN for close outpatient follow-up for discussion on need for replacement and/or complete removal. Any concerning signs or symptoms p resent prior to outpatient follow-up please don't hesitate to come back for repeat evaluation. Is a pleasure to take care of you and I wish you the best going forward BJ AGUILAR DO Feb 14, 2021 07:22
[2021-02-14 08:01] LABS: BASO # 0.1 x10^3/uL (0.0-0.2); BASO % 1 % (0-3); EOS # 0.3 x10^3/uL (0.0-0.7); EOS % 3 % (0-3); HEMATOCRIT 38.9 % (36.0-47.0); LYMPH # 2.2 x10^3/uL (1.0-4.8); LYMPH % 22 % (24-48); MEAN CORPUSCULAR HEMOGLOBIN 32 pg (25-35); MEAN CORPUSCULAR HGB CONC 33 g/dL (31-37); MEAN CORPUSCULAR VOLUME 96 fL (79-100); MONO # 0.7 x10^3/uL (0.0-1.1); MONO % 7 % (0-9); NEUT # 7.1 x10^3uL (1.8-7.7); NEUT % 69 % (31-73); PLATELET COUNT 202 x10^3/uL (140-400); RED BLOOD COUNT 4.04 x10^6/uL (3.50-5.40); RED CELL DISTRIBUTION WIDTH 13.2 % (11.5-14.5); WHITE BLOOD COUNT 10.4 x10^3/uL (4.0-11.0)
[2021-02-14 08:06] LABS: CALCIUM 8.5 mg/dL (8.5-10.1); CREATININE 0.7 mg/dL (0.6-1.0); GFR 104.6; POTASSIUM 4.5 mmol/L (3.5-5.1)
--- NOTE | 2021-02-14 08:36 | RAD ---
US PELVIS W/TV History: Vaginal bleeding, IUD 3 months. Comparison: Pelvic ultrasound 01/30/2019 Technique: Sonographic examination of the pelvis was performed with transabdominal and transvaginal t echnique. Findings: Uterus- Uterine parenchyma: Homogeneous without fibroids. Uterine measurements: 9.6 x 5.9 x 4.9 cm Cervix: IUD string seen within the cervical canal. Endometrium- Endometrial Stripe: An intrauterine device is present in the mid endometrium, approximately 1.5 cm fr om the fundus. The intrauterine device wings are not well visualized. Thickness: 14 mm. Adnexa- Right Ovary: Identified and appears normal. Size: 5.3 x 3.2 x 3.6 cm Doppler: Normal. Left Ovary: Identified and appears normal. Size: 3.9 x 2.1 x centimeters Doppler: Normal. Other: No abnormal adnexal masses. No abnormal free fluid in the pelvis. Impression: 1. Intrauterine device suboptimally positioned in the mid endometrium, approximately 1.5 cm from the fundus, recommend removal. IUD wings not clearly identified, cannot extension into myometrium. Electronically signed by: Boni Martin MD (02/14/2021 8:33 AM) [id number]
[2021-02-14] MEDS ORDERED: ONDANSETRON PF 4 MG/2 ML VIAL. IVP ONE (08:45)
[2021-02-14 08:51] LABS: BACTERIA,URINE 0 /HPF (0-FEW); BILIRUBIN,URINE NEG (NEG); CLARITY,URINE CLEAR; COLOR,URINE STRAW; GLUCOSE,URINE NEG (NEG); NITRITE,URINE NEG (NEG); SQUAMOUS EPITHELIAL CELL,UR MOD /LPF; UROBILINOGEN,URINE 0.2 mg/dL (0.2 mg/dL); WBC,URINE OCC /HPF (0-4)
[2021-02-14 08:52] VITALS: BP 127/66
== END 2021-02-14 09:10 | disposition home or self-care (01) ==
LOC: ER 07:08
DX: T83.83XA Hemorrhage due to genitourinary prosthetic devices, implants and grafts, initial encounter (principal); N93.8 Other specified abnormal uterine and vaginal bleeding; Z91.018 Allergy to other foods; Z88.6 Allergy status to analgesic agent
CPT/HCPCS: 36415; 76830; 76856; 80048; 81001; 81025; 84443; 85025; 96374; 99284; J2405